=== PATIENT | male | born 1995 | race Caucasian/White ===

== ENCOUNTER 2021-12-10 16:53 | Emergency (ER) | payer SELFPAY ==
[~2021-12-10] VITALS: Ht 170.2 cm; Wt 77.5 kg
[2021-12-10 17:10] VITALS: BP 130/84
[2021-12-10] MEDS ORDERED: ONDANSETRON HCL 4MG/2ML INJ IV STA (17:47)
[2021-12-10] MEDS ORDERED: ONDANSETRON HCL 4MG/2ML INJ IV NR (17:47)
[2021-12-10] MEDS ORDERED: SODIUM CHLORIDE 0.9% 1,000 ML IV ONE (18:00)
[2021-12-10 20:47] LABS: BASOPHILS % 0.5 % (0.0-2.0); EOSINOPHILS % 0.3 % (0.0-5.0); HEMATOCRIT. 46.1 % (42.0-52.0); HEMOGLOBIN. 15.7 g/dL (14.0-18.0); LYMPHOCYTES % 8.9 % (20.0-50.0); MEAN CORPUSCULAR HEMOGLOBIN 30.5 pg (28.0-32.0); MEAN CORPUSCULAR VOLUME 89.7 fL (80.0-94.0); MONOCYTES % 2.8 % (2.0-8.0); NEUTROPHILS % 87.5 % (40.0-76.0); PLATELET 262 x1000/uL (130-400); RED BLOOD CELL COUNT 5.14 mill/uL (4.7-6.1); RED CELL DISTRIBUTION WIDTH 12.9 % (11.6-14.6)
[2021-12-10 20:56] LABS: CHLORIDE 107 mEq/L (98-107)
[2021-12-10 21:03] LABS: ETHANOL BLOOD 167 mg/dL
== END 2021-12-10 20:58 | disposition left against medical advice (07) ==
LOC: ER 16:53
DX: F10.129 Alcohol abuse with intoxication, unspecified (principal); Y90.0 Blood alcohol level of less than 20 mg/100 ml; R41.82 Altered mental status, unspecified
CPT/HCPCS: 36415; 80053; 80320; 85025; 99283; J7030; G0480